=== PATIENT | female | born 1995 | race Caucasian/White ===

== ENCOUNTER → 2024-06-24 13:16 | Outpatient (BNVA) | payer OTHER, SELFPAY | PROVIDERS: Visit Provider Physician Assistant Medical | DX: S63.501A Unspecified sprain of right wrist, initial encounter (principal); W50.2XXA Accidental twist by another person, initial encounter; X50.1XXA Overexertion from prolonged static or awkward postures, initial encounter; M65.4 Radial styloid tenosynovitis [de Quervain] | CPT/HCPCS: 29125; 99203 ==

== ENCOUNTER → 2024-06-30 14:52 | Outpatient (BNVA) | payer OTHER, SELFPAY | PROVIDERS: Visit Provider Physician Assistant Medical | DX: S63.501A Unspecified sprain of right wrist, initial encounter (principal); W50.2XXA Accidental twist by another person, initial encounter; W50.1XXA Accidental kick by another person, initial encounter; M65.4 Radial styloid tenosynovitis [de Quervain] | CPT/HCPCS: 99213 ==

== ENCOUNTER → 2024-07-07 15:35 | Outpatient (BNVA) | payer OTHER, SELFPAY | PROVIDERS: Visit Provider Physician Assistant Medical | DX: S63.501A Unspecified sprain of right wrist, initial encounter (principal); W50.2XXA Accidental twist by another person, initial encounter; M65.4 Radial styloid tenosynovitis [de Quervain]; Z02.79 Encounter for issue of other medical certificate | CPT/HCPCS: 99213 ==